=== PATIENT | male | born 1950 ===

== ENCOUNTER 2021-04-22 10:52 | Inpatient (IN) ==
[2021-04-22] MEDS ORDERED: 0.9 % Sodium Chloride 1,000 ML IVC ONE (11:10)
[2021-04-22 11:36] LABS: ABG Base Excess -2 mEq/L (-2 to 3); ABG HCO3 24 mEq/L (21-27); ABG Oxygen Saturation 87 % (95-98); ABG PCO2 46 mmHg (35-45); ABG PH 7.33 pH Units (7.32-7.45); ABG PO2 56 mmHg (85-104); ABG TCO2 26 mEq/L (20-26)
[2021-04-22 11:53] LABS: Basophils % 0.2 %; Hematocrit 31.7 % (37.5-50.1); Hemoglobin 10.1 g/dL (12.9-16.9); Immature Granulocytes % 0.6 % (0-4); Lymphocytes # 0.4 K/mcL (0.6-4.6); Lymphocytes % 4.1 %; Mean Corpuscular HGB Conc 31.9 g/dL (31.6-35.5); Mean Corpuscular Hemoglobin 28.1 pg (28.0-33.3); Mean Corpuscular Volume 88.3 fL (83.0-100.0); Mean Platelet Volume 8.9 fL (9.4-12.4); Monocytes # 0.3 K/mcL (0.0-1.3); Neutrophils # 8.1 K/mcL (1.6-8.9); Platelet Count 255 K/mcL (140-400); Red Blood Count 3.59 M/mcL (4.19-5.50); Red Cell Distribution Width 13.9 % (11.5-14.5); Segmented Neutrophils % 92.1 %; White Blood Count 8.7 K/mcL (4.3-11.1)
[2021-04-22 12:04] LABS: Lipase 3 Units/L (11-82)
[2021-04-22 12:58] LABS: Influenza A PCR Negative (Negative); Influenza B PCR Negative (Negative); Resp. Syncytial Virus PCR Negative (Negative)
[2021-04-22 13:03] LABS: SARS-CoV-2 by PCR (In House) Negative (Negative)
[2021-04-22 14:21] LABS: Troponin I 0.06 ng/mL (< 0.04)
[2021-04-22 15:00] LABS: Alanine Aminotransferase 9 Units/L (7-52); Albumin 3.2 g/dL (3.5-5.7); Alkaline Phosphatase 107 Units/L (34-104); Aspartate Amino Transferase 41 Units/L (13-39); BUN/Creatinine Ratio 20 (6-26); Bilirubin,Total 1.7 mg/dL (0.3-1.0); Blood Urea Nitrogen 26 mg/dL (8-23); Calcium 8.9 mg/dL (8.6-10.3); Carbon Dioxide 21 mEq/L (23-29); Chloride 98 mEq/L (98-107); Globulin 3.2 g/dL (2.4-3.5); Glucose 94 mg/dL (70-105); Osmolality,Calculated 283 (280-300); Potassium 3.9 mEq/L (3.5-5.1); Sodium 134 mEq/L (136-145); Total Protein 6.4 g/dL (6.4-8.9); eGFR For African Americans > 60 (> 60); eGFR For Non-African Americans 56 (> 60)
[2021-04-22] MEDS ORDERED: Ipratropium/Albuterol Neb 3 ML IH ONE ×2 (15:02→15:03)
[2021-04-22] MEDS ORDERED: methylPREDNISolone 125 MG/2 ML VIAL IVP ONE (15:03)
[2021-04-22] MEDS ORDERED: Aspirin 325 MG TABLET PO ONE (15:12)
[2021-04-22] MEDS ORDERED: Melatonin 3 MG TABLET PO PRN (16:04)
[2021-04-22] MEDS ORDERED: Ondansetron 4 MG/2 ML VIAL IVP PRN (16:04)
[2021-04-22] MEDS ORDERED: Acetaminophen 325 MG TABLET PO PRN (16:04)
[2021-04-22] MEDS ORDERED: Naloxone 0.4 MG/ML INJ IVP PRN (16:04)
[2021-04-22] MEDS ORDERED: 0.9 % Sodium Chloride 1,000 ML ONE (16:12)
[2021-04-22] MEDS ORDERED: Ipratropium/Albuterol Neb 3 ML IH PRN (16:39)
[2021-04-22] MEDS ORDERED: Perflutren Lipid Microsphere 1.3 ML in 0.9 % Sodium Chloride 8.7 ML IVP PRN (17:21)
[2021-04-22] MEDS: Azithromycin 500 MG in 0.9 % Sodium Chloride 250 ML IVPB SCH (18:05)
[2021-04-22] MEDS: cefTRIAXone 1,000 MG in Water for inj. (sterile) 10 ML IVP SCH (18:05)
[2021-04-22] MEDS: 0.9 % Sodium Chloride 1,000 ML IVC SCH (18:05)
[2021-04-22] MEDS: Budesonide/Formoterol 80/4.5 1 PUFF INH IH SCH (20:22)
[2021-04-22] MEDS: Ipratropium/Albuterol Neb 3 ML IH SCH ×2 (20:23→23:26)
[2021-04-22] MEDS: *HR* Heparin 5,000 UNIT/ML VIAL SQ SCH (21:26)
[2021-04-23] MEDS: Ipratropium/Albuterol Neb 3 ML IH SCH ×6 (03:44→23:29)
[2021-04-23] MEDS: *HR* Heparin 5,000 UNIT/ML VIAL SQ SCH ×2 (04:58→17:10)
[2021-04-23] MEDS: 0.9 % Sodium Chloride 1,000 ML IVC SCH ×2 (04:58→14:32)
[2021-04-23 05:09] LABS: Basophils % 0.1 %; Hematocrit 26.8 % (37.5-50.1); Hemoglobin 8.6 g/dL (12.9-16.9); Immature Granulocytes % 0.4 % (0-4); Lymphocytes # 0.3 K/mcL (0.6-4.6); Lymphocytes % 3.3 %; Mean Corpuscular HGB Conc 32.1 g/dL (31.6-35.5); Mean Corpuscular Hemoglobin 28.7 pg (28.0-33.3); Mean Corpuscular Volume 89.3 fL (83.0-100.0); Mean Platelet Volume 9.3 fL (9.4-12.4); Monocytes % 0.3 %; Platelet Count 244 K/mcL (140-400); Red Cell Distribution Width 14.1 % (11.5-14.5); Segmented Neutrophils % 95.9 %; White Blood Count 9.4 K/mcL (4.3-11.1)
[2021-04-23 05:18] LABS: INR 1.3; Prothrombin Time 14.8 Seconds (9.4-12.1)
[2021-04-23 05:28] LABS: Carbon Dioxide 19 mEq/L (23-29); Chloride 105 mEq/L (98-107); Glucose 158 mg/dL (70-105); Phosphorous 3.7 mg/dL (2.7-4.5); Sodium 138 mEq/L (136-145); eGFR For African Americans > 60 (> 60); eGFR For Non-African Americans > 60 (> 60)
[2021-04-23 05:29] LABS: Albumin 2.9 g/dL (3.5-5.7); Albumin/Globulin Ratio 1.1 (1.1-2.2); Bilirubin,Direct 0.4 mg/dL (0.0-0.2); Bilirubin,Indirect 0.4 mg/dL (0.0-1.0); Bilirubin,Total 0.8 mg/dL (0.3-1.0); Globulin 2.7 g/dL (2.4-3.5); Total Protein 5.6 g/dL (6.4-8.9)
[2021-04-23 05:44] LABS: BUN/Creatinine Ratio 23 (6-26); Blood Urea Nitrogen 25 mg/dL (8-23); Calcium 8.3 mg/dL (8.6-10.3); Osmolality,Calculated 294 (280-300)
[2021-04-23 05:53] LABS: Folate 12.3 ng/mL (3.0-16.0)
[2021-04-23 06:10] LABS: Thyroid Stimulating Hormone 149.602 mcIU/mL (0.340-5.600)
[2021-04-23] MEDS: Budesonide/Formoterol 80/4.5 1 PUFF INH IH SCH ×2 (07:24→19:58)
[2021-04-23] MEDS: cefTRIAXone 1,000 MG in Water for inj. (sterile) 10 ML IVP SCH (10:07)
[2021-04-23] MEDS: MethylPREDNISolone 40 MG/ML VIAL IVP SCH (10:09)
[2021-04-23] MEDS: Multivit/Ca/Min/Fe/FA 1 TAB TABLET PO SCH (10:10)
[2021-04-23] MEDS ORDERED: Levothyroxine Sodium 200 MCG VIAL IVP ONE (13:00)
[2021-04-23 14:22] LABS: Triiodothyronine (T3) Free 1.5 pg/mL (2.50-3.90)
[2021-04-23] MEDS: Azithromycin 500 MG in 0.9 % Sodium Chloride 250 ML IVPB SCH (17:10)
[2021-04-24 01:47] LABS: Hemoglobin 8.3 g/dL (12.9-16.9); Mean Corpuscular HGB Conc 31.9 g/dL (31.6-35.5); Mean Corpuscular Hemoglobin 28.8 pg (28.0-33.3); Mean Corpuscular Volume 90.3 fL (83.0-100.0); Mean Platelet Volume 9.2 fL (9.4-12.4); Platelet Count 235 K/mcL (140-400); Red Blood Count 2.88 M/mcL (4.19-5.50); Red Cell Distribution Width 14.5 % (11.5-14.5)
[2021-04-24 01:48] LABS: White Blood Count 20.5 K/mcL (4.3-11.1)
[2021-04-24 02:07] LABS: BUN/Creatinine Ratio 23 (6-26); Blood Urea Nitrogen 22 mg/dL (8-23); Calcium 8.1 mg/dL (8.6-10.3); Carbon Dioxide 22 mEq/L (23-29); Chloride 111 mEq/L (98-107); Glucose 212 mg/dL (70-105); Osmolality,Calculated 300 (280-300); Phosphorous 2.8 mg/dL (2.7-4.5); Potassium 3.6 mEq/L (3.5-5.1); Sodium 140 mEq/L (136-145); eGFR For African Americans > 60 (> 60); eGFR For Non-African Americans > 60 (> 60)
[2021-04-24 02:25] LABS: Triiodothyronine (T3) Free 1.73 pg/mL (2.50-3.90)
[2021-04-24] MEDS: Ipratropium/Albuterol Neb 3 ML IH SCH ×6 (03:35→23:51)
[2021-04-24] MEDS: *HR* Heparin 5,000 UNIT/ML VIAL SQ SCH ×2 (06:19→18:25)
[2021-04-24] MEDS: Budesonide/Formoterol 80/4.5 1 PUFF INH IH SCH ×2 (07:37→19:39)
[2021-04-24] MEDS: Multivit/Ca/Min/Fe/FA 1 TAB TABLET PO SCH (11:04)
[2021-04-24] MEDS: cefTRIAXone 1,000 MG in Water for inj. (sterile) 10 ML IVP SCH (11:04)
[2021-04-24] MEDS: MethylPREDNISolone 40 MG/ML VIAL IVP SCH (11:04)
[2021-04-24 11:21] LABS: Thyroglobulin Antibody 151.8 IU/mL (0.0-4.0)
[2021-04-24] MEDS ORDERED: Levothyroxine Sodium 100 MCG VIAL IVP ONE (11:50)
[2021-04-24] MEDS: Nicotine 21 MG PATCH.TD24 TD SCH (13:42)
[2021-04-24] MEDS: Azithromycin 500 MG in 0.9 % Sodium Chloride 250 ML IVPB SCH (18:23)
[2021-04-24 23:03] LABS: BUN/Creatinine Ratio 22 (6-26); Blood Urea Nitrogen 19 mg/dL (8-23); C-Reactive Protein 113 mg/L (Less than 10); Calcium 8.6 mg/dL (8.6-10.3); Carbon Dioxide 23 mEq/L (23-29); Chloride 109 mEq/L (98-107); Glucose 135 mg/dL (70-105); Magnesium 2.1 mg/dL (1.6-2.6); Osmolality,Calculated 296 (280-300); Potassium 3.4 mEq/L (3.5-5.1); Sodium 141 mEq/L (136-145); eGFR For African Americans > 60 (> 60); eGFR For Non-African Americans > 60 (> 60)
[2021-04-25] MEDS: Ipratropium/Albuterol Neb 3 ML IH SCH ×5 (03:55→20:03)
[2021-04-25] MEDS: *HR* Heparin 5,000 UNIT/ML VIAL SQ SCH ×2 (05:17→17:32)
[2021-04-25 07:16] LABS: Basophils % 0.2 %; Hematocrit 29.2 % (37.5-50.1); Hemoglobin 8.8 g/dL (12.9-16.9); Immature Granulocytes % 3.1 % (0-4); Lymphocytes # 0.5 K/mcL (0.6-4.6); Lymphocytes % 2.1 %; Mean Corpuscular HGB Conc 30.1 g/dL (31.6-35.5); Mean Corpuscular Hemoglobin 28.4 pg (28.0-33.3); Mean Corpuscular Volume 94.2 fL (83.0-100.0); Mean Platelet Volume 9.3 fL (9.4-12.4); Monocytes # 0.4 K/mcL (0.0-1.3); Monocytes % 1.6 %; Neutrophils # 21.7 K/mcL (1.6-8.9); Platelet Count 187 K/mcL (140-400); Red Cell Distribution Width 14.6 % (11.5-14.5); White Blood Count 23.3 K/mcL (4.3-11.1)
[2021-04-25 07:32] LABS: Basophils # 0.1 K/mcL (0.0-0.2)
[2021-04-25 07:36] LABS: BUN/Creatinine Ratio 23 (6-26); Blood Urea Nitrogen 18 mg/dL (8-23); Calcium 8.8 mg/dL (8.6-10.3); Carbon Dioxide 28 mEq/L (23-29); Chloride 110 mEq/L (98-107); Glucose 108 mg/dL (70-105); Osmolality,Calculated 296 (280-300); Phosphorous 2.3 mg/dL (2.7-4.5); Potassium 4.1 mEq/L (3.5-5.1); Sodium 142 mEq/L (136-145); eGFR For African Americans > 60 (> 60); eGFR For Non-African Americans > 60 (> 60)
[2021-04-25] MEDS: Budesonide/Formoterol 80/4.5 1 PUFF INH IH SCH ×2 (07:41→19:42)
[2021-04-25 07:53] LABS: Triiodothyronine (T3) Free 1.69 pg/mL (2.50-3.90)
[2021-04-25] MEDS ORDERED: Potassium Phosphate 44 MEQ in 0.9 % Sodium Chloride 250 ML IVPB ONE (07:59)
[2021-04-25 08:18] LABS: Thyroid Stimulating Hormone 81.647 mcIU/mL (0.340-5.600)
[2021-04-25] MEDS: MethylPREDNISolone 40 MG/ML VIAL IVP SCH (08:53)
[2021-04-25] MEDS: Multivit/Ca/Min/Fe/FA 1 TAB TABLET PO SCH (08:53)
[2021-04-25] MEDS: cefTRIAXone 1,000 MG in Water for inj. (sterile) 10 ML IVP SCH (08:53)
[2021-04-25 09:27] LABS: C-Reactive Protein 94 mg/L (Less than 10)
[2021-04-25 09:33] LABS: Platelet Estimate Normal (Normal)
[2021-04-25] MEDS: Nicotine 21 MG PATCH.TD24 TD SCH (10:00)
[2021-04-25 12:31] LABS: Estimated Average Glucose 97 mg/dl
[2021-04-26] MEDS: Ipratropium/Albuterol Neb 3 ML IH SCH ×7 (03:42→23:40)
[2021-04-26] MEDS: *HR* Heparin 5,000 UNIT/ML VIAL SQ SCH ×2 (05:20→16:29)
[2021-04-26] MEDS: Budesonide/Formoterol 80/4.5 1 PUFF INH IH SCH ×2 (07:43→19:26)
[2021-04-26 08:05] LABS: BUN/Creatinine Ratio 27 (6-26); Blood Urea Nitrogen 19 mg/dL (8-23); Calcium 8.6 mg/dL (8.6-10.3); Carbon Dioxide 28 mEq/L (23-29); Chloride 109 mEq/L (98-107); Glucose 70 mg/dL (70-105); Magnesium 2.2 mg/dL (1.6-2.6); Osmolality,Calculated 293 (280-300); Phosphorous 2.2 mg/dL (2.7-4.5); Potassium 4.4 mEq/L (3.5-5.1); Sodium 141 mEq/L (136-145); eGFR For African Americans > 60 (> 60); eGFR For Non-African Americans > 60 (> 60)
[2021-04-26] MEDS: cefTRIAXone 1,000 MG in Water for inj. (sterile) 10 ML IVP SCH (08:36)
[2021-04-26] MEDS: Nicotine 21 MG PATCH.TD24 TD SCH (08:37)
[2021-04-26] MEDS: Multivit/Ca/Min/Fe/FA 1 TAB TABLET PO SCH (08:37)
[2021-04-26] MEDS: predniSONE 20 MG TABLET PO SCH (08:37)
[2021-04-26 11:47] LABS: C-Reactive Protein 70 mg/L (Less than 10)
[2021-04-26] MEDS: Azithromycin 250 MG TABLET PO SCH (16:28)
[2021-04-26] MEDS ORDERED: Sodium Phosphate 30 MMOL in D5% in Water 100 ML IVPB ONE (17:29)
[2021-04-27] MEDS: Ipratropium/Albuterol Neb 3 ML IH SCH ×6 (03:46→23:46)
[2021-04-27] MEDS: *HR* Heparin 5,000 UNIT/ML VIAL SQ SCH ×2 (05:26→16:36)
[2021-04-27] MEDS: Budesonide/Formoterol 80/4.5 1 PUFF INH IH SCH ×2 (07:27→20:25)
[2021-04-27] MEDS: predniSONE 20 MG TABLET PO SCH (08:43)
[2021-04-27] MEDS: Cefdinir 300 MG CAPSULE PO SCH ×2 (08:43→20:08)
[2021-04-27] MEDS: Nicotine 21 MG PATCH.TD24 TD SCH (08:43)
[2021-04-27] MEDS: Multivit/Ca/Min/Fe/FA 1 TAB TABLET PO SCH (08:43)
[2021-04-27] MEDS: Azithromycin 250 MG TABLET PO SCH (16:36)
[2021-04-28 01:49] LABS: Basophils % 0.2 %; Hematocrit 28.7 % (37.5-50.1); Hemoglobin 8.6 g/dL (12.9-16.9); Lymphocytes # 0.3 K/mcL (0.6-4.6); Lymphocytes % 2.2 %; Mean Corpuscular Hemoglobin 27.9 pg (28.0-33.3); Mean Platelet Volume 9.8 fL (9.4-12.4); Monocytes # 0.3 K/mcL (0.0-1.3); Monocytes % 2.2 %; Neutrophils # 13.3 K/mcL (1.6-8.9); Platelet Count 208 K/mcL (140-400); Red Blood Count 3.08 M/mcL (4.19-5.50); Red Cell Distribution Width 14.4 % (11.5-14.5); Segmented Neutrophils % 93.4 %; White Blood Count 14.2 K/mcL (4.3-11.1)
[2021-04-28 01:50] LABS: Mean Corpuscular Volume 93.2 fL (83.0-100.0)
[2021-04-28 01:52] LABS: BUN/Creatinine Ratio 30 (6-26); Blood Urea Nitrogen 25 mg/dL (8-23); Calcium 8.3 mg/dL (8.6-10.3); Carbon Dioxide 27 mEq/L (23-29); Chloride 104 mEq/L (98-107); Glucose 129 mg/dL (70-105); Osmolality,Calculated 290 (280-300); Potassium 4.6 mEq/L (3.5-5.1); Sodium 137 mEq/L (136-145); eGFR For African Americans > 60 (> 60); eGFR For Non-African Americans > 60 (> 60)
[2021-04-28] MEDS: Ipratropium/Albuterol Neb 3 ML IH SCH ×6 (03:48→23:44)
[2021-04-28] MEDS: *HR* Heparin 5,000 UNIT/ML VIAL SQ SCH ×2 (05:58→17:43)
[2021-04-28] MEDS: Budesonide/Formoterol 80/4.5 1 PUFF INH IH SCH ×2 (07:34→23:43)
[2021-04-28] MEDS: Multivit/Ca/Min/Fe/FA 1 TAB TABLET PO SCH (07:53)
[2021-04-28] MEDS: Nicotine 21 MG PATCH.TD24 TD SCH (07:53)
[2021-04-28] MEDS: predniSONE 20 MG TABLET PO SCH (07:54)
[2021-04-28] MEDS: Cefdinir 300 MG CAPSULE PO SCH ×2 (07:54→20:19)
[2021-04-29 02:51] LABS: Basophils % 0.2 %; Hematocrit 31.2 % (37.5-50.1); Hemoglobin 9.6 g/dL (12.9-16.9); Immature Granulocytes % 3.1 % (0-4); Lymphocytes # 0.6 K/mcL (0.6-4.6); Lymphocytes % 4.8 %; Mean Corpuscular HGB Conc 30.8 g/dL (31.6-35.5); Mean Corpuscular Hemoglobin 28.2 pg (28.0-33.3); Mean Corpuscular Volume 91.5 fL (83.0-100.0); Mean Platelet Volume 9.5 fL (9.4-12.4); Monocytes # 0.6 K/mcL (0.0-1.3); Monocytes % 4.7 %; Neutrophils # 10.6 K/mcL (1.6-8.9); Platelet Count 288 K/mcL (140-400); Red Blood Count 3.41 M/mcL (4.19-5.50); Red Cell Distribution Width 14.5 % (11.5-14.5); Segmented Neutrophils % 87.2 %; White Blood Count 12.2 K/mcL (4.3-11.1)
[2021-04-29 03:08] LABS: BUN/Creatinine Ratio 37 (6-26); Blood Urea Nitrogen 26 mg/dL (8-23); Calcium 8.5 mg/dL (8.6-10.3); Carbon Dioxide 33 mEq/L (23-29); Chloride 100 mEq/L (98-107); Glucose 107 mg/dL (70-105); Magnesium 2.1 mg/dL (1.6-2.6); Osmolality,Calculated 289 (280-300); Phosphorous 3.2 mg/dL (2.7-4.5); Potassium 4.3 mEq/L (3.5-5.1); Sodium 137 mEq/L (136-145); eGFR For African Americans > 60 (> 60); eGFR For Non-African Americans > 60 (> 60)
[2021-04-29] MEDS: Ipratropium/Albuterol Neb 3 ML IH SCH ×4 (03:48→15:46)
[2021-04-29] MEDS: *HR* Heparin 5,000 UNIT/ML VIAL SQ SCH (06:01)
[2021-04-29] MEDS: Budesonide/Formoterol 80/4.5 1 PUFF INH IH SCH (07:27)
[2021-04-29 07:53] VITALS: O2SAT 90
[2021-04-29] MEDS: predniSONE 20 MG TABLET PO SCH (09:35)
[2021-04-29] MEDS: Multivit/Ca/Min/Fe/FA 1 TAB TABLET PO SCH (09:35)
[2021-04-29] MEDS: Cefdinir 300 MG CAPSULE PO SCH (09:35)
[2021-04-29] MEDS: Nicotine 21 MG PATCH.TD24 TD SCH (09:35)
[2021-04-29 11:38] VITALS: BP 123/69; PULSE 88; TEMP 97.6
[2021-04-29 12:53] LABS: Adenovirus Not Detected (Not Detect); Bordetella Pertussis Not Detected (Not Detect); Chlamydophila pneumoniae Not Detected (Not Detect); Coronavirus 229E Not Detected (Not Detect); Coronavirus HKU1 Not Detected (Not Detect); Coronavirus NL63 Not Detected (Not Detect); Coronavirus OC43 Not Detected (Not Detect); Human Metapneumovirus Not Detected (Not Detect); Human Rhinovirus/Enterovirus DETECTED (Not Detect); Influenza A Subtype 2009 H1 Not Detected (Not Detect); Influenza B Not Detected (Not Detect); Mycoplasma pneumoniae Not Detected (Not Detect); Parainfluenza Virus 1 Not Detected (Not Detect); Parainfluenza Virus 2 Not Detected (Not Detect); Parainfluenza Virus 3 Not Detected (Not Detect); Parainfluenza Virus 4 Not Detected (Not Detect); Respiratory Syncytial Virus Not Detected (Not Detect); SARS-CoV-2 Not Detected (Not Detect)
== END 2021-04-29 16:09 | DRG 871 ==
LOC: 2ANU 10:52 → EMEROOARM 10:52 → SUATTDRO 18:29 → 2ANU 19:54
PROVIDERS: ADMIT Internal Medicine; ATTEND Student in an Organized Health Care Education/Training Program